=== PATIENT | female | born 1940 | race Caucasian/White ===

== ENCOUNTER → 2017-04-01 | Outpatient (CLI) | payer OTHER ==
[~2017-04-01] VITALS: Ht 165.1 cm; Wt 92.5 kg
[~2017-04-01] MED LIST: ADULT LOW DOSE81 M1 PO; AVASTATIN PO; BYSTOLIC2.5 MG; CELEXA20 MG PO; DIOVAN HCT 11 TABLET PO; JANUMET 50/51 TABLET PO
[2017-04-01 08:50] LABS: POINT-OF-CARE METER ID UU14174212; POINT-OF-CARE USER ID AHSUCAJR
== END | disposition home or self-care (01) ==
LOC: AMB 02-24 08:00
PROVIDERS: Internal Medicine Gastroenterology
DX: K29.90 Gastroduodenitis, unspecified, without bleeding (principal); K44.9 Diaphragmatic hernia without obstruction or gangrene; K52.9 Noninfective gastroenteritis and colitis, unspecified; D64.89 Other specified anemias; I10 Essential (primary) hypertension; E11.9 Type 2 diabetes mellitus without complications; J45.909 Unspecified asthma, uncomplicated; Z79.82 Long term (current) use of aspirin
CPT/HCPCS: 82948; 88305; 88342 TC; 93005; J2250; J3010

== ENCOUNTER → 2018-03-30 | Outpatient (CLI) | payer OTHER ==
[~2018-03-30] VITALS: Ht 165.1 cm; Wt 94.4 kg
[~2018-03-30] MED LIST changes: +AMARYL2 MG PO; -CELEXA20 MG PO; +CELEXA40 MG PO; +COREG6.25 M1 PO; +LIPITOR40 MG PO; +NORVASC5 MG PO
== END | disposition home or self-care (01) ==
LOC: AMB 08:25
PROVIDERS: Internal Medicine Gastroenterology
DX: K44.9 Diaphragmatic hernia without obstruction or gangrene (principal); D50.8 Other iron deficiency anemias; E53.8 Deficiency of other specified B group vitamins; I25.10 Atherosclerotic heart disease of native coronary artery without angina pectoris; I35.0 Nonrheumatic aortic (valve) stenosis; I65.29 Occlusion and stenosis of unspecified carotid artery; F41.1 Generalized anxiety disorder; E66.9 Obesity, unspecified; Z68.34 Body mass index [BMI] 34.0-34.9, adult; Z88.5 Allergy status to narcotic agent
CPT/HCPCS: 82948; 88305; 88341 TC; 88342 TC; 93005; J7643